=== PATIENT | female | born 1970 | race African-American/Black ===

== ENCOUNTER 2024-10-15 17:34 | Emergency (ER) | payer SELFPAY ==
[~2024-10-15] VITALS: Ht 172.7 cm; Wt 100.0 kg
[2024-10-15 17:43] VITALS: BP 165/93; PULSE 71; RESP 18; TEMP 97.5; O2SAT 98
[2024-10-15] MEDS ORDERED: LOSA-382 PO (17:44)
[2024-10-15] MEDS ORDERED: CHOL400T56 PO (17:44)
[2024-10-15] MEDS ORDERED: FLUO-418 PO (17:44)
[2024-10-15] MEDS ORDERED: AMLO-258 PO (17:44)
[2024-10-15] MEDS ORDERED: MIRT-89 PO (17:44)
[2024-10-15] MEDS ORDERED: FLUT1BLS6 IH (17:51)
[2024-10-15] MEDS ORDERED: CHOL25TA4 PO (17:51)
[2024-10-15] MEDS ORDERED: LORA10TA7 PO (17:51)
[2024-10-15] MEDS ORDERED: ALBU18HF12 IH (17:51)
[2024-10-15] MEDS ORDERED: MAGN400T25 PO (17:51)
[2024-10-15] MEDS ORDERED: IBUP-1492 PO (18:16)
[2024-10-15] MEDS ORDERED: AMOX-457 PO (18:16)
[2024-10-15] MEDS ORDERED: OXYC5 PO (18:16)
[2024-10-15] MEDS ORDERED: ACET-3385 PO (18:16)
[2024-10-15] MEDS: AMOX TR/POT CLAV 875 MG/125 MG TABLET PO ONE (18:19)
[2024-10-15] MEDS: ACETAMINOPHEN 500 MG TABLET PO ONE (18:19)
== END 2024-10-15 20:15 | disposition home or self-care (01) ==
LOC: EMS 17:34
DX: K08.89 Other specified disorders of teeth and supporting structures (principal); K02.9 Dental caries, unspecified; I10 Essential (primary) hypertension; Z79.51 Long term (current) use of inhaled steroids; Z79.899 Other long term (current) drug therapy
CPT/HCPCS: 99283

== ENCOUNTER 2024-12-02 19:41 | Emergency (ER) | payer MEDICAID ==
[~2024-12-02] VITALS: Ht 172.7 cm; Wt 112.3 kg
[~2024-12-02 19:41] MED LIST: ACET-3385 PO; ALBU18HF12 IH; AMLO-258 PO; AMOX-457 PO; CHOL25TA4 PO; FLUO-418 PO; FLUT1BLS6 IH; IBUP-1492 PO; LORA10TA7 PO; LOSA-382 PO; MAGN400T25 PO; MIRT-89 PO; OXYC5 PO
[2024-12-02 20:40] VITALS: TEMP 98.105288
[2024-12-02 21:00] LABS: PLATELET COUNT (AUTO) 214 K/uL (150-450); RED BLOOD CELL COUNT(AUTO) 4.27 MIL/uL (4.00-5.20); RED CELL DISTRIBUTION WIDTH 15.5 % (11.5-14.5); WHITE BLOOD COUNT (AUTO) 6.8 K/uL (4.5-11.0)
[2024-12-02 21:10] LABS: CALCIUM, TOTAL 9.0 mg/dL (8.8-10.5); CREATININE 1.19 mg/dL (0.60-1.30); GLOMERULAR FILTR. RATE CALC 57 mL/min (>60); GLUCOSE,RANDOM 117 mg/dL (70-110); SODIUM SERUM 142 mmol/L (136-145); UREA NITROGEN, BLOOD 18 mg/dL (7-18)
[2024-12-02 21:17] LABS: ASPARTATE AMINOTRANSFERASE 19.0 U/L (15-37); TOTAL PROTEIN, SERUM 7.0 g/dL (6.4-8.2)
[2024-12-02 21:18] LABS: TROPONIN I-HIGH SENSITIVITY 10 ng/L (<51)
[2024-12-02] MEDS: ACETAMINOPHEN 500 MG TABLET PO ONE (22:42)
[2024-12-02] MEDS: KETOROLAC TROMETHAMINE 30 MG/ML VIAL IM ONE (22:42)
[2024-12-02] MEDS: LIDOCAINE 5% TRANSDERMAL PATCH TD ONE (22:43)
[2024-12-02 23:44] VITALS: BP 150/87; PULSE 67; RESP 20; O2SAT 98
[2024-12-03] MEDS ORDERED: METH-812 PO (01:21)
== END 2024-12-03 01:52 | disposition home or self-care (01) ==
LOC: EMS 19:42
DX: M17.12 Unilateral primary osteoarthritis, left knee (principal); R06.02 Shortness of breath; I10 Essential (primary) hypertension; Z79.51 Long term (current) use of inhaled steroids; Z79.899 Other long term (current) drug therapy
CPT/HCPCS: 99285; 71045; 80048; 80076; 83880; 84484; 85025; 36415; 73562; 93005; 96372; J1885